=== PATIENT | female | born 2000 | race Caucasian/White ===

== ENCOUNTER 2021-06-02 13:50 | Emergency (ER) | payer OTHER ==
[~2021-06-02 13:50] MED LIST: PERCOCET 5-3251 EACH PO
[2021-06-02 15:16] LABS: BILIRUBIN NEGATIVE (NEGATIVE); BLOOD NEGATIVE Ery/uL (NEGATIVE); CLARITY CLEAR (CLEAR); COLOR YELLOW (YELLOW); GLUCOSE (U) NORMAL (NORMAL); LEUKOCYTES 1+ Leu/uL (NEGATIVE); NITRITE NEGATIVE (NEGATIVE); PROTEIN NEGATIVE (NEGATIVE); SPECIFIC GRAVITY <=1.005 (1.001-1.030); UROBILINOGEN 0.2 mg/dL (0.2-1.0); pH 7.5 (5.0-9.0)
[2021-06-02 15:33] LABS: BACTERIA TRACE; URINARY WBC RARE
[2021-06-02 18:00] LABS: BASOPHIL 0.2 % (0-2); EOSINOPHIL 1.1 % (0-5); HCT 43.7 % (37.0-47.0); HGB 14.4 g/dl (12.5-16.0); LYMPHOCYTE 22.5 % (15-48); MCH 29.9 pg (25.0-31.0); MCV 90.7 fL (78.0-100.0); MONOCYTE 8.2 % (0-12); MPV 11.7 fL (6.0-9.5); NEUTROPHIL 67.7 % (41-80); NRBC 0; PLT 207 K/uL (150-400); RBC 4.82 M/uL (4.20-5.40); WBC 6.1 K/uL (4.0-10.5)
[2021-06-02 18:12] LABS: ALBUMIN 4.1 g/dL (3.4-5.0); BILIRUBIN - TOTAL 0.3 mg/dL (0.2-1.0); BUN/CREAT RATIO (CALC) 8.8 RATIO; CREATININE 0.68 mg/dL (0.51-0.95); POTASSIUM 3.7 mmol/L (3.5-5.1); TOTAL PROTEIN 8.1 g/dL (6.4-8.2)
[2021-06-04 22:08] LABS: CHLAMYDIA TRACHOMATIS, NAA Positive (Negative); NEISSERIA GONORRHOEAE, NAA Negative (Negative)
== END 2021-06-02 20:19 | disposition home or self-care (01) ==
LOC: FER 13:50
PROVIDERS: Internal Medicine; Nurse Practitioner Family
DX: R10.84 Generalized abdominal pain (principal); R11.0 Nausea; F17.210 Nicotine dependence, cigarettes, uncomplicated; Z88.8 Allergy status to other drugs, medicaments and biological substances; Z20.2 Contact with and (suspected) exposure to infections with a predominantly sexual mode of transmission
CPT/HCPCS: 36415; 80053; 81001; 82150; 83690; 85025; 87491; 87591; J0696; Q0162